=== PATIENT | female | born 1990 | race Caucasian/White ===

== ENCOUNTER → 2017-06-10 | Outpatient (CLI) | payer BC | LOC: LABPAT 13:04 | PROVIDERS: ATTEND Obstetrics & Gynecology | DX: Z01.812 Encounter for preprocedural laboratory examination (principal); O03.9 Complete or unspecified spontaneous abortion without complication | CPT/HCPCS: 36415; 85025; 86850; 86900; 86901 ==

== ENCOUNTER 2017-06-11 10:53 | Day surgery (SDC) | payer BC ==
[2017-06-10 14:10] LABS: Basophils % (A) 0 %; CH 29.6; CHCM 33.7; Eosinophils % (A) 0 %; HCT 39.2 % (34.0-46.0); HDW 2.82; HGB 12.9 gm/dL (11.4-16.0); Luc # (Auto) 0.15; Luc % (Auto) 1; Lymphocytes # (A) 1.8 k/uL (1.0-4.8); Lymphocytes % (A) 17 %; MCH 29.2 pg (25.0-35.0); MCV 88.4 fL (80.0-100.0); Mean Platelet Volume 7.5; Monocytes # (A) 0.5 k/uL (0-1.0); Monocytes % (A) 4 %; Neutrophils # (A) 8.4 k/uL (1.3-7.7); Neutrophils % (A) 77 %; RBC 4.43 m/uL (3.80-5.40); RDW 12.6 % (11.5-15.5); WBC 10.8 k/uL (3.8-10.6)
[2017-06-10 14:57] VITALS: BMI 37.6
[~2017-06-11 10:53] MED LIST: DEXAMETHASONE SOD PHOSPHATE 10 MG/ML 1 ML VIAL IV ONE; HYDROmorphone 1 MG/ML 1 ML SYRINGE IVP PRN; LACTATED RINGERS 1,000 ML IV SCH; LIDOCAINE 1% 20 ML VIAL (10MG/ML) FOR IV START INTRADERMA PRN; MIDAZOLAM 2 MG/2 ML VIAL IV PRN; ONDANSETRON 4 MG/2 ML VIAL IVP ONE; Pre Op ABX Message 1 EACH MISC MISCELLANE ONE; SCOPOLAMINE 1.5MG/72HR PATCH TRANSDERM ONE
[2017-06-11] MEDS ORDERED: PROPOFOL 10 MG/ML 20 ML VIAL IV ONE (12:20)
[2017-06-11] MEDS ORDERED: KETOROLAC 30 MG/ML 1 ML VIAL ONE (12:20)
[2017-06-11] MEDS ORDERED: LIDOCAINE 1% INJ 10MG/ML (20 ML MDV) ONE (12:20)
[2017-06-11] MEDS ORDERED: fentaNYL (PF) 50 MCG/ML 2 ML AMP ONE (12:20)
[2017-06-11] MEDS ORDERED: MIDAZOLAM 2 MG/2 ML VIAL ONE (12:20)
[2017-06-11] MEDS ORDERED: SILVER NITRATE APPLICATOR 1 EACH STICK..EA. TOPICAL ONE (12:40)
--- NOTE | 2017-06-11 12:47 | P.OP ---
Date of Procedure: 06/11/17 Preoperative Diagnosis: Missed , first trimester, Rh+ Postoperative Diagnosis: Same Procedure(s) Performed: Suction D&C Anesthesia: TAMMY Surgeon: Amparo Parker Estimated Blood Loss (ml): 75 IV fluids (ml): 150 Urine output (ml): 75 Pathology: other (Intrauterine contents, products of conception) Condition: stable Disposition: PACU Description of Procedure: Patient is brought to the operating suite where a general anesthetic is administered without difficulty. She's placed in the dorsal lithotomy position. The appropriate timeout is performed to assure proper patient and procedural identification. Examination under anesthesia reveals a retroverted uterus, 8-10 weeks size, smooth and mobile, negative adnexa bilaterally. Bladder is drained for approximate 75 mL of clear yellow urine. The perineal body is prepped and draped in usual sterile fashion. The cervix was gently and systematically dilated with Hanks dilators. The anterior lip of the cervix is grasped gently with a double-tooth tenaculum. Uterus sounds to a depth of 10 cm in the retroverted position. A #8 curved curette is used, this was placed to the dome of the fundus, and under appropriate suction pressures the curettage is performed. When this is completed, a sharp curette is used to assure that there are no retained products of conception. There are no intrauterine defects, septa, or anomalies appreciated. Fundus is firm, bleeding is scant upon completion of procedure. All sponge needle and enhancement counts are correct. Patient is brought back to recovery room in stable condition with a blood pressure of 110/80, pulse 72, Toradol is given prior to leaving the operative suite. She will follow-up with the office immediately in 2 weeks.
[2017-06-11 12:51] VITALS: TEMP 97.4
[2017-06-11 14:15] VITALS: RESP 16
[2017-06-11 14:32] VITALS: BP 125/83; PULSE 79
== END 2017-06-11 14:40 | disposition home or self-care (01) ==
LOC: OR 10:53
PROVIDERS: ATTEND Obstetrics & Gynecology
DX: O02.1 Missed abortion (principal); Z3A.08 8 weeks gestation of pregnancy
CPT/HCPCS: 86900; 86901; 88305; 85025; 86850; 36415; 59820; J2250; J1100; J2405; J2001; J3010; J1885; J2704

== ENCOUNTER 2018-06-08 15:06 | Outpatient (CLI) | payer BC ==
[2018-06-08 16:20] VITALS: BP 117/70; PULSE 90; RESP 16; TEMP 97.1
--- NOTE | 2018-06-14 08:59 | P.MSEPDOC ---
Presenting Problems - Arrival Data Date of Arrival on Unit: 06/08/18 Time of Arrival on Unit: 15:18 Mode of Transport: Ambulatory - Complaint OB-Reason for Admission/Chief Complaint: Rule Out PROM Comment: pt arrived c/o dampness in underwear Medical History - Information : 3 Para: 1 Term: 1 : 0 Abortions: Spontaneous or Elective: 1 Number of Living Children: 1 - Gestational Age Gestational Age by CAMI (wks/days): 36 Weeks and 4 Days Review of Systems - Review of Systems Constitutional: No problems Breast: No problems ENT: No problems Cardiovascular: No problems Respiratory: No problems Gastrointestinal: No problems Genitourinary: No problems Musculoskeletal: No problems Neurological: No problems Skin: No problems Vital Signs - Temperature Temperature: 97.1 F Temperature Source: Oral - Pulse Right Brachial Pulse Rate: 90 Pulse Assessment Method: Automatic Cuff - Respirations Respiratory Rate: 16 Oxygen Delivery Method: Room Air - Blood Pressure Right Arm Blood Pressure: 117/70 Blood Pressure Mean: 85 Blood Pressure Source: Automatic Cuff Medical Screen Scoring (Pre) - Cervical Exam Dilation: 0 cm = 0 Effacement: More than 50% = 2 Membranes: Intact - Uterine Contractions Frequency: N/A Duration: N/A Intensity: N/A - Maternal Vital Signs Maternal Temperature: N/A Signs of Preeclampsia: N/A Maternal Respirations: N/A - Pain Assessment Pain Scale Used: Numeric (1 - 10) Pain Intensity: 0 Pain Management Goal: 0 Pain Behavior: Vocalization - Maternal Trauma Maternal Trauma: N/A - Assessment Baseline FHR: 130 Heart Rate - NICHD Category: Category I (Normal) = 0 NST: Reactive Position: N/A - Total Score Total Score (Pre): 2 - Level of Risk Level of Risk: Low (0-5) Physician Notification (Post) - Physician Notified Physician Notified Date: 06/08/18 Physician Notified Time: 16:00 Spoke With: dr jean baptiste New Order Received: Yes - Notification Comment Comment: amnisure negative cervix soft but closed may discharge to home Disposition - Disposition OB Disposition: Discharge to home Discharge Date: 06/08/18 Discharge Time: 16:00 I agree with the RN Medical Screening Exam: Yes Risk & Benefit of care provided described in d/c instruction: Yes Diagnosis: FALSE LABOR BEFORE 37 COMPLETED WEEKS OF GEST, THIRD TRI
== END 2018-06-08 16:00 | disposition home or self-care (01) ==
LOC: FBPOP 15:06
PROVIDERS: ATTEND Obstetrics & Gynecology
DX: O47.03 False labor before 37 completed weeks of gestation, third trimester (principal); Z3A.36 36 weeks gestation of pregnancy
CPT/HCPCS: 59025; 84112; 99213

== ENCOUNTER 2018-07-02 15:33 | Inpatient (IN) | payer BC ==
[2018-07-06] MEDS ORDERED: LIDOCAINE 0.5% (PF) 5 MG/ML (50 ML SDV) SQ PRN (06:22)
[2018-07-06] MEDS ORDERED: OXYTOCIN 10 UNIT/ML 1 ML VIAL IM PRN (06:22)
[2018-07-06] MEDS ORDERED: CARBOPROST TROMETHAMINE 250 MCG/ML 1 ML AMP IM PRN (06:22)
[2018-07-06] MEDS ORDERED: TERBUTALINE 1 MG/ML VIAL SQ PRN (06:22)
[2018-07-06] MEDS: LACTATED RINGERS 1,000 ML IV SCH ×3 (06:22→23:28)
[2018-07-06] MEDS ORDERED: METHYLERGONOVINE 0.2 MG/ML 1 ML AMP IM PRN (06:22)
[2018-07-06] MEDS ORDERED: OXYTOCIN 20 UNITS/1000 ML NS 1,000 ML IV SCH (06:30)
[2018-07-06 06:40] VITALS: BMI 38.4
[2018-07-06 06:50] LABS: Basophils % (A) 0 %; Eosinophils # (A) 0.1 k/uL (0-0.7); Eosinophils % (A) 1 %; HGB 11.6 gm/dL (11.4-16.0); Lymphocytes # (A) 1.7 k/uL (1.0-4.8); Lymphocytes % (A) 21 %; MCH 28.6 pg (25.0-35.0); MCHC 34.1 g/dL (31.0-37.0); Mean Platelet Volume 8.8; Monocytes # (A) 0.4 k/uL (0-1.0); Monocytes % (A) 5 %; Neutrophils # (A) 5.8 k/uL (1.3-7.7); Neutrophils % (A) 72 %; Platelet Count 175 k/uL (150-450); RBC 4.05 m/uL (3.80-5.40); RDW 13.7 % (11.5-15.5); WBC 8.2 k/uL (3.8-10.6)
--- NOTE | 2018-07-06 07:26 | P.HPOB ---
History of Present Illness H&P Date: 07/06/18 This is a 27-year-old white female 3 para 1011 EDC 07/02/2018 at 40-4/7 weeks' gestation. Patient presents today for induction for postdates with favorable multiparous cervix. She denies uterine contractions or vaginal bleeding. She denies fluid leakage. Fetus is been active throughout the . history is significant for gestational diabetes, diet controlled. Group B strep cultures negative. Blood type O+. Rubella status immune. VDRL testing, urine culture, hepatitis B surface antigen, HIV testing, gonorrhea and chlamydia cultures all negative. Past surgical history suction D&C for missed AB 2010, wisdom teeth extracted 2007. Current medications Pepcid 20 mg when necessary, vitamins daily. ALLERGIES none known. Family history significant for diabetes, Down syndrome, hypertension, stroke, colon cancer. Social history patient is , she has never been a smoker, she denies alcohol or drug use. On exam this is a pleasant white female who is 5 foot 3 inches, 210 pounds, blood pressure 111/65 on admission, patient is afebrile. The general physical exam is within normal limits. The cervix is currently 3-4 cm dilated, 70% effaced, soft, vertex, intact, -2 station. Artificial amniorrhexis reveals clear fluid. heart tones are in the 140s with frequent accelerations consistent with reactive NST. Impression: 40-4/7 weeks intrauterine , gestational diabetes, all signs reassuring, here for elective induction of labor with favorable multiparous cervix. Plan: Close maternal and surveillance. Oxytocin per hospital protocol. Analgesic options reviewed with the patient. Anticipate normal spontaneous vaginal delivery. Review of Systems Negative except as in HPI. Constitutional: Reports as per HPI Past Medical History Past Medical History: GERD/Reflux Additional Past Medical History / Comment(s): miscarriage, Gestational diabetes 05/2018 History of Any Multi-Drug Resistant Organisms: None Reported Additional Past Surgical History / Comment(s): wisdom teeth 2007, D & C Past Anesthesia/Blood Transfusion Reactions: No Reported Reaction Past Psychological History: No Psychological Hx Reported Smoking Status: Never smoker Past Alcohol Use History: None Reported Past Drug Use History: None Reported - Past Family History Father Family Medical History: Hypertension Medications and Allergies Home Medications Medication Instructions Recorded Confirmed Type Acetaminophen Tab [Tylenol Tab] 650 mg PO Q4H PRN 06/10/17 07/06/18 History Jvx-Gaxm-Dacjz Acid 1 cap PO DAILY 06/10/17 07/06/18 History [-U Capsule (formulary)] Famotidine [Pepcid] 1 tab PO DAILY 05/04/18 07/06/18 History Allergies Allergy/AdvReac Type Severity Reaction Status Date / Time No Known Allergies Allergy Verified 07/06/18 06:17 Exam Vital Signs Temp Pulse Resp BP Pulse Ox 07/06/18 06:24 97.4 F L 81 18 111/65 99 Intake and Output 07/05/18 07/06/18 07/06/18 22:59 06:59 14:59 Other: Weight 95.254 kg Results Result Diagrams: 07/06/18 06:25 Assessment and Plan Assessment: 40-4/7 weeks intrauterine , gestational diabetes, here for induction of labor with favorable multiparous cervix. Plan: Continue close maternal and surveillance. Oxytocin per hospital protocol. Analgesic options reviewed with the patient. Anticipate normal spontaneous vaginal delivery. Time with Patient: Less than 30
[2018-07-06 07:33] LABS: Glucose,Whole Blood 88 mg/dL (75-99)
[2018-07-06] MEDS ORDERED: WITCH HAZEL 1 EACH MED..PAD TOPICAL PRN (14:09)
[2018-07-06] MEDS ORDERED: diphenhydrAMINE 50 MG/ML 1 ML VIAL IVP PRN ×2 (14:09)
[2018-07-06] MEDS ORDERED: ZOLPIDEM 5 MG TAB PO PRN (14:09)
[2018-07-06] MEDS ORDERED: SIMETHICONE 80 MG CHEWABLE PO PRN (14:09)
[2018-07-06] MEDS ORDERED: BENZOCAINE/MENTHOL SPRAY 1 GM/SPRAY AEROSOL TOPICAL PRN (14:09)
[2018-07-06] MEDS ORDERED: diphenhydrAMINE 25 MG CAP PO PRN (14:09)
[2018-07-06] MEDS ORDERED: diphenhydrAMINE 50 MG CAP PO PRN (14:09)
[2018-07-06] MEDS ORDERED: LANOLIN CREAM 5 GM TUBE TOPICAL PRN (14:09)
[2018-07-06] MEDS ORDERED: HYDROCORTISONE 2.5% RECTAL CREAM 30 GM TUBE RECTAL PRN (14:09)
[2018-07-06] MEDS ORDERED: ACETAMINOPHEN TAB 325 MG TAB PO PRN (14:09)
--- NOTE | 2018-07-06 14:09 | P.PROBDLV ---
Vaginal Delivery Note - . Vaginal Delivery Note: This is a 27-year-old white female 3 para 1011 EDC 07/02/2018 at 40-4/7 weeks' gestation. Patient presented this morning for induction for postdates with favorable multiparous cervix. Rupee strep cultures negative. Blood type O positive. Rubella status immune. Please see my dictated history and physical for details. Artificial amniorrhexis revealed clear fluid. Analgesia was offered but declined. Oxytocin was started and titrated per hospital protocol. Patient became completely dilated at 1340 hrs. and began the second stage of labor at that time. Perineal body was prepped and draped in usual sterile fashion. With excellent maternal expulsive efforts the head delivered occiput anterior and restituted accordingly. There was no nuchal cord. The left or anterior shoulder was gently and easily delivered from underneath the pubic symphysis at which time the oropharynx, nasopharynx, and external nares were all bulb suctioned on the perineal body. Patient was officially delivered of a liveborn male infant at 1353 hrs. Umbilical cord was doubly clamped and ligated, he was handed to waiting nurses for evaluation where scores of 9 and 9 at one and 5 minutes respectively were given. The placenta delivered spontaneously, it was inspected and noted to be intact with trivascular cord. At this time the perineal body was redraped. Inspection of the cervix, vagina, perineum, periurethral, and perirectal areas revealed no lacerations and no defects. Estimated blood loss 300 mL's. Fundus is firm and in the midline, symmetric and 18 week size upon completion of delivery. All sponge needle and enhancement counts are correct. Infant weighs 7 lbs. 11 oz. or 3480 g. They are requesting circumcision further infant son.
[2018-07-06 14:21] VITALS: RESP 16
[2018-07-06] MEDS: IBUPROFEN 600 MG TAB PO PRN ×2 (14:42→21:36)
[2018-07-06] MEDS: SENNOSIDES-DOCUSATE SODIUM 1 EACH TAB PO SCH (23:28)
[2018-07-07] MEDS: IBUPROFEN 600 MG TAB PO PRN ×2 (05:20→14:02)
[2018-07-07 07:16] LABS: Basophils % (A) 0 %; Eosinophils # (A) 0.1 k/uL (0-0.7); Eosinophils % (A) 1 %; HCT 30.7 % (34.0-46.0); HGB 10.3 gm/dL (11.4-16.0); Lymphocytes # (A) 1.5 k/uL (1.0-4.8); Lymphocytes % (A) 15 %; MCH 28.5 pg (25.0-35.0); MCHC 33.5 g/dL (31.0-37.0); MCV 85.2 fL (80.0-100.0); Mean Platelet Volume 8.6; Monocytes # (A) 0.4 k/uL (0-1.0); Monocytes % (A) 4 %; Neutrophils # (A) 8.3 k/uL (1.3-7.7); Neutrophils % (A) 80 %; Platelet Count 172 k/uL (150-450); RBC 3.61 m/uL (3.80-5.40); WBC 10.4 k/uL (3.8-10.6)
--- NOTE | 2018-07-07 07:49 | P.DS ---
Providers Date of admission: 07/06/18 06:08 Expected date of discharge: 07/07/18 Attending physician: Amparo Parker Primary care physician: Stated None Hospital Course: was essentially unremarkable, group B strep cultures negative, rubella status immune, blood type O positive. Please see my dictated history and physical for details. Artificial amniorrhexis revealed clear fluid. Patient was offered but declined the option for epidural. She went on to deliver a liveborn male infant with scores of 9 and 9 at one and 5 minutes respectively. Infant weighed 7 lbs. 11 oz. or 3480 g. There were no perineal lacerations and an estimated blood loss of 300 mL's. Please see dictated delivery note for details. This morning the circumcision has been performed and was unremarkable. The patient is doing well. She is voiding, ambulating, and passing flatus without difficulty. Vital signs are stable and she is afebrile. Breast-feeding is going well. There is minimal lochia rubra. Fundus is firm and in the midline, symmetric and 18 week size. Extremities are negative for edema. Patient is judged to be in excellent condition for discharge home. She will follow-up with me in the office in 6 weeks. I have reminded her no intercourse, tampons or douching. We've discussed briefly the options for contraception and we will discuss this further in the office. She will use over -the-counter Advil or Aleve as needed for pain. She will call me with any fevers shakes or chills, foul smelling or copious lochia, with any pain not alleviated by [id number] products, or any concerns. Russell will follow- up with drafter structural as recommended. Plan - Discharge Summary Discharge Rx Participant: No New Discharge Prescriptions: No Action Glt-Lcem-Ixwsc Acid [-U Capsule (formulary)] 1 cap PO DAILY Acetaminophen Tab [Tylenol Tab] 650 mg PO Q4H PRN PRN Reason: Pain Famotidine [Pepcid] 1 tab PO DAILY Discharge Medication List Acetaminophen Tab [Tylenol Tab] 650 mg PO Q4H PRN 06/10/17 [History] Onl-Jtlx-Qtoka Acid [-U Capsule (formulary)] 1 cap PO DAILY 03/19 [History] Famotidine [Pepcid] 1 tab PO DAILY 05/04/18 [History] Follow up Appointment(s)/Referral(s): Amparo Parker MD [STAFF PHYSICIAN] - 6 Weeks Discharge Disposition: HOME SELF-CARE
[2018-07-07 09:24] VITALS: BP 110/60; PULSE 86; TEMP 98.3
[2018-07-07] MEDS: SENNOSIDES-DOCUSATE SODIUM 1 EACH TAB PO SCH (14:03)
== END 2018-07-07 15:30 | disposition home or self-care (01) | DRG 807 ==
LOC: 4FBP 07-06 06:08
PROVIDERS: ADMIT Obstetrics & Gynecology; ATTEND Obstetrics & Gynecology
PROC: 10E0XZZ Delivery of Products of Conception, External Approach (ICD-10-PCS; principal; 2018-07-06)
PROC: 3E033VJ Introduction of Other Hormone into Peripheral Vein, Percutaneous Approach (ICD-10-PCS; 2018-07-06)
PROC: 10907ZC Drainage of Amniotic Fluid, Therapeutic from Products of Conception, Via Natural or Artificial Opening (ICD-10-PCS; 2018-07-06)
DX: O48.0 Post-term pregnancy (principal); Z37.0 Single live birth; O24.420 Gestational diabetes mellitus in childbirth, diet controlled; O99.62 Diseases of the digestive system complicating childbirth; K21.9 Gastro-esophageal reflux disease without esophagitis; Z3A.40 40 weeks gestation of pregnancy; Z79.899 Other long term (current) drug therapy; Z83.3 Family history of diabetes mellitus; Z82.79 Family history of other congenital malformations, deformations and chromosomal abnormalities; Z82.49 Family history of ischemic heart disease and other diseases of the circulatory system; Z80.0 Family history of malignant neoplasm of digestive organs; Z82.3 Family history of stroke
CPT/HCPCS: 85025; 86850; 86900; 86901

== ENCOUNTER → 2019-12-05 | Outpatient (CLI) | payer BC ==
--- NOTE | 2019-12-05 16:20 | US ---
EXAMINATION TYPE: US venous doppler duplex LE RT DATE OF EXAM: 12/05/2019 4:01 PM COMPARISON: NONE CLINICAL HISTORY: M79.661 Pain in right lower limb. Patient states she had a albert horse in her rig ht calf 2 days ago and pain/cramp is still there a little bit, patient is 39 weeks . SIDE PERFORMED: Right TECHNIQUE: The lower extremity deep venous system is examined utilizing real time linear array sonog brook with graded compression, doppler sonography and color-flow sonography. VESSELS IMAGED: External Iliac Vein (EIV) Common Femoral Vein Deep Femoral Vein Greater Saphenous Vein * Femoral Vein Popliteal Vein Small Saphenous Vein * Proximal Calf Veins (* superficial vessels) Right Leg: Appears negative for DVT IMPRESSION: No evidence for DVT at this time.
== END | disposition home or self-care (01) ==
LOC: RADUSMAIN 15:28
PROVIDERS: ATTEND Obstetrics & Gynecology
DX: M79.661 Pain in right lower leg (principal); Z3A.39 39 weeks gestation of pregnancy

== ENCOUNTER 2019-12-08 11:19 | Inpatient (IN) | payer BC ==
[2019-12-14] MEDS ORDERED: LIDOCAINE 0.5% (PF) 5 MG/ML (50 ML SDV) SQ PRN (06:20)
[2019-12-14] MEDS ORDERED: TERBUTALINE 1 MG/ML VIAL SQ PRN (06:20)
[2019-12-14] MEDS ORDERED: METHYLERGONOVINE 0.2 MG/ML 1 ML AMP IM PRN (06:20)
[2019-12-14] MEDS ORDERED: CARBOPROST TROMETHAMINE 250 MCG/ML 1 ML AMP IM PRN (06:20)
[2019-12-14] MEDS ORDERED: OXYTOCIN 10 UNIT/ML 1 ML VIAL IM PRN (06:20)
[2019-12-14] MEDS ORDERED: OXYTOCIN 30 UNITS/500 ML NS 30 UNIT in SALINE 1 500ML.BAG IV SCH (06:30)
[2019-12-14] MEDS: LACTATED RINGERS 1,000 ML IV SCH ×2 (06:32→19:49)
[2019-12-14 06:45] LABS: Basophils % (A) 0 %; Eosinophils # (A) 0.1 k/uL (0-0.7); Eosinophils % (A) 1 %; HCT 32.1 % (34.0-46.0); HGB 10.6 gm/dL (11.4-16.0); Lymphocytes # (A) 1.3 k/uL (1.0-4.8); Lymphocytes % (A) 20 %; MCH 28.1 pg (25.0-35.0); MCHC 33.1 g/dL (31.0-37.0); MCV 84.7 fL (80.0-100.0); Mean Platelet Volume 8.8; Monocytes # (A) 0.4 k/uL (0-1.0); Monocytes % (A) 5 %; Neutrophils # (A) 4.9 k/uL (1.3-7.7); Neutrophils % (A) 71 %; Platelet Count 173 k/uL (150-450); RBC 3.79 m/uL (3.80-5.40); RDW 14.2 % (11.5-15.5); WBC 6.8 k/uL (3.8-10.6)
--- NOTE | 2019-12-14 07:39 | P.HPOB ---
History of Present Illness H&P Date: 12/14/19 Chief Complaint: Here for elective induction of labor with favorable multiparous cervix This is a 29-year-old white female 4 para 2012 EDC 12/08/2019 at 40-6/7 weeks' gestation. Patient presents today with favorable multiparous cervix, postdates, for induction of labor. Fetus is been active throughout the . She denies vaginal bleeding or fluid leakage. Past medical history is significant for anxiety and depression. Past surgical history suction D&C for missed AB 2016, wisdom teeth extracted 2007. Current medications Pepcid 40 mg orally as needed, vitamins daily, extra strength Tylenol as needed. ALLERGIES none known. Family history is significant for hypertension, diabetes, stroke, colon cancer, Down syndrome and febrile seizures. Obstetric history significant for normal spontaneous vaginal deliveries 2, unremarkable. Social history patient has never been a tobacco smoker, she denies alcohol or drug use. 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 history significant for blood type O positive, rubella status immune. VDRL testing, urine culture, hepatitis B surface antigen, HIV testing, gonorrhea and chlamydia cultures, group B strep cultures all negative. One hour Glucola elevated, 3 hour GTT within normal limits. On exam this is a pleasant white female who is 5 foot 2 inches, 205 pounds, blood pressure 130/64 with pulse of 89 on admission. General physical exam is within normal limits. Extremities reveal no edema. Chest is clear in all landeros. Cervix is 3-4 cm dilated, 60-70% effaced, -2 station, vertex presentation. Artificial amniorrhexis reveals clear fluid. heart rate is in the 140s with frequent accelerations consistent with reactive NST. Uterine contractions are occurring sporadically, and are mild. Impression: 40-6/7 weeks intrauterine , favorable multiparous cervix, here for induction of labor. All signs reassuring. Plan: Oxytocin augmentation per hospital protocol. Analgesic options have been reviewed with the patient. Close maternal and surveillance. Anticipate normal spontaneous vaginal delivery. Review of Systems Constitutional: Reports as per HPI Past Medical History Past Medical History: GERD/Reflux Additional Past Medical History / Comment(s): miscarriage, Gestational diabetes 05/2018 History of Any Multi-Drug Resistant Organisms: None Reported Additional Past Surgical History / Comment(s): wisdom teeth 2008, D & C Past Anesthesia/Blood Transfusion Reactions: No Reported Reaction Past Psychological History: No Psychological Hx Reported, Anxiety, Depression Smoking Status: Never smoker Past Alcohol Use History: None Reported Past Drug Use History: None Reported - Past Family History Father Family Medical History: Hypertension Medications and Allergies Home Medications Medication Instructions Recorded Confirmed Type Hfw-Pxpr-Azcel Acid 1 cap PO DAILY 06/10/17 12/14/19 History [-U Capsule (formulary)] Famotidine [Pepcid] 1 tab PO DAILY 05/04/18 12/14/19 History Allergies Allergy/AdvReac Type Severity Reaction Status Date / Time No Known Allergies Allergy Verified 12/14/19 06:12 Exam Vital Signs Temp Pulse Resp BP Pulse Ox 12/14/19 06:11 97.7 F 89 16 130/64 99 Intake and Output 12/13/19 12/14/19 12/14/19 22:59 06:59 14:59 Other: Weight 92.986 kg See dictation under HPI please Results Result Diagrams: 12/14/19 06:30 Abnormal Lab Results - Last 24 Hours (Table) 12/14/19 Range/Units 06:30 RBC 3.79 L (3.80-5.40) m/uL Hgb 10.6 L (11.4-16.0) gm/dL Hct 32.1 L (34.0-46.0) % Assessment and Plan Assessment: 40-6/7 weeks intrauterine , favorable multiparous cervix, here for elective induction of labor. All signs reassuring. Plan: Oxytocin titrated per hospital protocol. Close maternal and surveillance. Analgesic options reviewed with the patient. Anticipate normal spontaneous vaginal delivery. Time with Patient: Less than 30
[2019-12-14] MEDS ORDERED: LANOLIN CREAM 5 GM TUBE TOPICAL PRN (13:22)
[2019-12-14] MEDS ORDERED: diphenhydrAMINE 50 MG CAP PO PRN (13:22)
[2019-12-14] MEDS ORDERED: BENZOCAINE/MENTHOL SPRAY 1 GM/SPRAY AEROSOL TOPICAL PRN (13:22)
[2019-12-14] MEDS ORDERED: SIMETHICONE 80 MG CHEWABLE PO PRN (13:22)
[2019-12-14] MEDS ORDERED: HYDROCORTISONE 2.5% RECTAL CREAM 30 GM TUBE RECTAL PRN (13:22)
[2019-12-14] MEDS ORDERED: WITCH HAZEL 1 EACH MED..PAD TOPICAL PRN (13:22)
[2019-12-14] MEDS ORDERED: diphenhydrAMINE 50 MG/ML 1 ML VIAL IVP PRN ×2 (13:22)
[2019-12-14] MEDS ORDERED: diphenhydrAMINE 25 MG CAP PO PRN (13:22)
[2019-12-14] MEDS ORDERED: ZOLPIDEM 5 MG TAB PO PRN (13:22)
[2019-12-14] MEDS ORDERED: ACETAMINOPHEN TAB 325 MG TAB PO PRN (13:22)
--- NOTE | 2019-12-14 13:22 | P.PROBDLV ---
Vaginal Delivery Note - . Vaginal Delivery Note: This is a 29-year-old white female 4 para 2012 EDC 12/08/2019 at 40-6/7 weeks' gestation. Patient presented for induction for postdates and favorable multiparous cervix. She is remarkable for negative group B strep cultures, blood type O positive, rubella status immune. Please see dictated history and physical for details. Artificial rupture membranes revealed clear fluid. Oxytocin was started and titrated per hospital protocol. Analgesic options were discussed, but patient declined. She progressed well through the first stage of labor and became completely dilated at 1253 hours. Second stage of labor then commenced. It'll heart tones were reassuring throughout the first and second stages. Perineal body was prepped and draped in usual sterile fashion. With excellent maternal expulsive efforts the head delivered occiput anterior and restituted accordingly. There was a nuchal cord 1 that was reduced on the perineal body. The left or anterior shoulder was delivered from underneath the pubic symphysis at which time the oropharynx, nasopharynx, and external nares were all bulb suctioned. Patient was officially delivered a liveborn female at 1304 hrs. Umbilical cord was doubly clamped and ligated, she was handed to waiting nurses for evaluation where scores of 7 and 9 at one and 5 minutes respectively were given. Placenta delivered spontaneously, it was inspected and noted be intact with trivascular cord at 1306 hrs. At this time the uterus was massaged. Careful inspection of the cervix, vagina, perineum, periurethral, and perirectal areas revealed no lacerations and no defects. Total estimated blood loss 250 mL's. All sponge needle and enhancement counts are correct at the end of the procedure. Patient and her family are allowed to begin the bonding experience in the LDR.
[2019-12-14] MEDS ORDERED: OXYTOCIN 20 UNITS/1000 ML NS 1,000 ML IV SCH (13:30)
[2019-12-14] MEDS: IBUPROFEN 600 MG TAB PO PRN ×2 (13:57→19:48)
[2019-12-14] MEDS: SENNOSIDES-DOCUSATE SODIUM 1 EACH TAB PO SCH (19:49)
[2019-12-15 07:23] LABS: Basophils % (A) 0 %; Eosinophils # (A) 0.1 k/uL (0-0.7); Eosinophils % (A) 1 %; HCT 31.6 % (34.0-46.0); HGB 10.2 gm/dL (11.4-16.0); Lymphocytes # (A) 1.4 k/uL (1.0-4.8); Lymphocytes % (A) 16 %; MCH 27.7 pg (25.0-35.0); MCHC 32.3 g/dL (31.0-37.0); MCV 85.6 fL (80.0-100.0); Mean Platelet Volume 9.1; Monocytes # (A) 0.4 k/uL (0-1.0); Monocytes % (A) 4 %; Neutrophils # (A) 6.6 k/uL (1.3-7.7); Neutrophils % (A) 77 %; Platelet Count 181 k/uL (150-450); RBC 3.69 m/uL (3.80-5.40); RDW 14.4 % (11.5-15.5); WBC 8.5 k/uL (3.8-10.6)
[2019-12-15] MEDS: IBUPROFEN 600 MG TAB PO PRN (07:54)
--- NOTE | 2019-12-15 08:04 | P.DS ---
Providers Date of admission: 12/14/19 06:02 Expected date of discharge: 12/15/19 Attending physician: Amparo Parker Primary care physician: Stated None Hospital Course: This is a 29-year-old white female 4 para 2012 EDC 12/08/2019 at 40-6/7 weeks' gestation. Patient presented for induction for postdates with favorable multiparous cervix. Fetus is been active throughout the . remarkable for rubella status immune, blood type O positive, group strep cultures negative. Please see dictated history and physical for details. Oxytocin was started per hospital protocol. Artificial amniorrhexis revealed clear fluid. Epidural was offered but declined per the patient. She went on to deliver vaginally a liveborn female infant with scores of 7 and 9 at one and 5 minutes respectively. There was a nuchal cord 1. No lacerations or defects were identified. Patient's baby weighed 9 lbs. 4 oz. or 4190 g. Please see dictated delivery note for details. This morning the patient is doing well. She is voiding ambulating and passing flatus without difficulty. Vital signs are stable and she is afebrile. Fundus is firm and in the midline, symmetric and 18 week size. Breasts are not engorged. Prescription for breast pump is given. Patient is judged to be in very good condition for discharge home. She will follow-up with me in the office in 6 weeks. I have reminded her no intercourse, tampons or douching. She will use [id number] Advil or Aleve, or Motrin as needed for pain. She will call with any fevers shakes or chills, foul smelling or copious lochia, with the passage of large blood clots, with any pain not alleviated by [id number]-wen-nigleix products, or with any concerns. We have discussed options for contraception and we will review this further in the office. Booker will follow-up with doughnut icer as per recommendations. Patient Condition at Discharge: Good Plan - Discharge Summary Discharge Rx Participant: No New Discharge Prescriptions: No Action Sle-Jket-Luhdo Acid [-U Capsule (formulary)] 1 cap PO DAILY Famotidine [Pepcid] 1 tab PO DAILY Discharge Medication List Mwm-Eobk-Jxuzk Acid [-U Capsule (formulary)] 1 cap PO DAILY 06/10/17 [History] Famotidine [Pepcid] 1 tab PO DAILY 05/04/18 [History] Follow up Appointment(s)/Referral(s): Amparo Parker MD [STAFF PHYSICIAN] - 6 Weeks
[2019-12-15] MEDS: SENNOSIDES-DOCUSATE SODIUM 1 EACH TAB PO SCH (08:31)
[2019-12-15 08:35] VITALS: BP 132/80; PULSE 79; RESP 16; TEMP 98.5
== END 2019-12-15 14:00 | disposition home or self-care (01) | DRG 807 ==
LOC: 4FBP 12-14 06:02
PROVIDERS: ADMIT Obstetrics & Gynecology; ATTEND Obstetrics & Gynecology
PROC: 10907ZC Drainage of Amniotic Fluid, Therapeutic from Products of Conception, Via Natural or Artificial Opening (ICD-10-PCS; principal; 2019-12-14)
PROC: 10E0XZZ Delivery of Products of Conception, External Approach (ICD-10-PCS; principal; 2019-12-14)
PROC: 3E033VJ Introduction of Other Hormone into Peripheral Vein, Percutaneous Approach (ICD-10-PCS; principal; 2019-12-14)
DX: O48.0 Post-term pregnancy (principal); Z37.0 Single live birth; O69.81X0 Labor and delivery complicated by cord around neck, without compression, not applicable or unspecified; K21.9 Gastro-esophageal reflux disease without esophagitis; O99.62 Diseases of the digestive system complicating childbirth; Z3A.40 40 weeks gestation of pregnancy; Z86.32 Personal history of gestational diabetes; Z86.59 Personal history of other mental and behavioral disorders; Z80.0 Family history of malignant neoplasm of digestive organs; Z82.3 Family history of stroke; Z82.49 Family history of ischemic heart disease and other diseases of the circulatory system; Z82.79 Family history of other congenital malformations, deformations and chromosomal abnormalities; Z83.3 Family history of diabetes mellitus
CPT/HCPCS: 85025; 86850; 86900; 86901

== ENCOUNTER → 2024-01-04 | Outpatient (CLI) | payer BC ==
[2024-01-04 15:58] LABS: HCT 39.2 % (37.2-46.3); HGB 13.5 g/dL (12.0-15.0); MCH 28.8 pg (27.0-32.0); MCHC 34.4 g/dL (32.0-37.0); MCV 83.8 FL (80.0-97.0); Mean Platelet Volume 10.7 FL (9.5-12.2); NRBC Per 100 WBC 0 X 10*3/uL (0.00-0.01); Platelet Count 250 X 10*3/uL (140-440); RBC 4.68 X 10*6/uL (4.10-5.20); RDW 12.7 % (11.5-14.5); WBC 5.93 X 10*3/uL (4.50-10.00)
[2024-01-04 15:59] LABS: Basophils # (A) 0.03 X 10*3/uL (0.00-0.10); Basophils % (A) 0.5 %; Eosinophils # (A) 0.07 X 10*3/uL (0.04-0.35); Eosinophils % (A) 1.2 %; Lymphocytes # (A) 1.77 X 10*3/uL (0.90-5.00); Lymphocytes % (A) 29.8 %; Monocytes # (A) 0.42 X 10*3/uL (0.20-1.00); Monocytes % (A) 7.1 %; Neutrophils # (A) 3.63 X 10*3/uL (1.80-7.70); Neutrophils % (A) 61.2 %
[2024-01-04 19:29] LABS: Blood Urea Nitrogen 10.4 mg/dL (9.0-27.0); Carbon Dioxide 22.7 mmol/L (21.6-31.8); Chloride 105 mmol/L (96-109); Glucose 105 mg/dL (70-110); Sodium 142 mmol/L (135-145)
== END | disposition home or self-care (01) ==
LOC: LABPAT 13:17
PROVIDERS: ATTEND Obstetrics & Gynecology Obstetrics
DX: Z01.812 Encounter for preprocedural laboratory examination (principal); N92.0 Excessive and frequent menstruation with regular cycle; N94.6 Dysmenorrhea, unspecified; N80.00 Endometriosis of the uterus, unspecified
CPT/HCPCS: 80051; 82565; 82947; 84520; 85025; 86850; 86900; 86901; 87086

== ENCOUNTER 2024-01-14 05:51 | Day surgery (SDC) | payer BC ==
[2024-01-12 08:40] VITALS: BMI 33.6
[2024-01-14 06:16] VITALS: RESP 16
[2024-01-14] MEDS: IV FLUID CONTINUATION 1,000 ML IV ONE ×2 (06:27→09:33)
[2024-01-14] MEDS: LACTATED RINGERS 1,000 ML IV SCH ×2 (06:32→11:01)
[2024-01-14] MEDS: DEXAMETHASONE SOD PHOSPHATE 4 MG/ML 1 ML VIAL IV ONE (06:33)
[2024-01-14] MEDS: ONDANSETRON 4 MG/2 ML VIAL IVP ONE (06:33)
[2024-01-14] MEDS: MIDAZOLAM 2 MG/2 ML VIAL IVP ONE (06:58)
[2024-01-14] MEDS ORDERED: HYDROmorphone 0.5 MG/0.5 ML SYRINGE IVP PRN (07:00)
[2024-01-14] MEDS ORDERED: LIDOCAINE 1% INJ 10MG/ML (20 ML MDV) ONE (07:32)
[2024-01-14] MEDS ORDERED: GLYCOPYRROLATE 0.2 MG/ML 2 ML VIAL ONE (07:32)
[2024-01-14] MEDS ORDERED: SUCCINYLCHOLINE CHLORIDE 200 MG/10 ML VIAL IV ONE (07:32)
[2024-01-14] MEDS ORDERED: PROPOFOL 10 MG/ML 20 ML VIAL IV ONE (07:32)
[2024-01-14] MEDS ORDERED: NEOSTIGMINE 1 MG/ML 10 ML VIAL ONE (07:32)
[2024-01-14] MEDS ORDERED: fentaNYL (PF) 50 MCG/ML 2 ML AMP ONE (07:32)
[2024-01-14] MEDS ORDERED: MIDAZOLAM 2 MG/2 ML VIAL ONE (07:32)
[2024-01-14] MEDS ORDERED: MORPHINE SULFATE (PF) 0.3 MG/0.3 ML SYR ONE (07:32)
[2024-01-14] MEDS ORDERED: ROCURONIUM 10 MG/ML (5 ML VIAL) IV ONE (07:32)
--- NOTE | 2024-01-14 07:42 | P.HPOB ---
History of Present Illness H&P Date: 01/14/24 Chief Complaint: Heavy menstrual bleeding, DUB, dysmenorrhea, HR HPV This is a 33-year-old female that presents with complaints of increasing menstrual irregularities. She states her menstrual have been mostly irregular at times every 14 days with a heavy flow. Significant dysmenorrhea is noted. Patient does not have a history of migraines therefore is unable to do medical management. 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 Patient is interested in definitive treatment as she is done with childbearing. Ultrasound was performed revealing a normal uterine size of 8 cm x 5 cm x 3 cm. Ovaries appeared normal with follicles. Heterogeneous appearance of the uterus was suggestive of adenomyosis. [employer] history 4 para 3. Number 01 February 2016, 39-week term delivery 7 pounds 3 ounces June 2017, missed AB requiring suction dilation and curettage July 2018 term vaginal delivery 7 pounds 11 ounces December 2019, term delivery 9 pounds 4 ounces, vaginal delivery. Review of Systems Constitutional: Denies chills, Denies fatigue, Denies fever Ears, nose, mouth and throat: Denies headache Cardiovascular: Denies leg edema Respiratory: Denies dyspnea Gastrointestinal: Denies constipation, Denies diarrhea, Denies nausea, Denies vomiting Genitourinary: Reports dysmenorrhea, Reports menorrhagia, Denies Menstruation: Reports menses variable Past Medical History Past Medical History: GERD/Reflux Additional Past Medical History / Comment(s): miscarriage, Gestational diabetes 05/2018 History of Any Multi-Drug Resistant Organisms: None Reported Past Surgical History: Breast Surgery Additional Past Surgical History / Comment(s): wisdom teeth 2008, D & C, BREAST REDUCTION OCTOBER 2021 Past Anesthesia/Blood Transfusion Reactions: No Reported Reaction Smoking Status: Never smoker - Past Family History Father Family Medical History: Hypertension Medications and Allergies Home Medications Medication Instructions Recorded Confirmed Type Famotidine [Pepcid] 1 tab PO DAILY PRN 05/04/18 01/14/24 History Allergies Allergy/AdvReac Type Severity Reaction Status Date / Time No Known Allergies Allergy Verified 01/14/24 06:16 Exam Osteopathic Statement: *. No significant issues noted on an osteopathic structural exam other than those noted in the History and Physical/Consult. Vital Signs Temp Pulse Resp BP Pulse Ox 01/14/24 07:03 64 16 124/71 97 01/14/24 06:15 97.6 F 77 16 121/74 98 Intake and Output 01/13/24 01/14/24 01/14/24 22:59 06:59 14:59 Intake Total 500 Balance 500 Intake: IV 500 Other: Weight 84.5 kg Targeted physical exam is performed, in general this is a well-nourished well- developed non female in no acute distress, breathing is nonlabored, heart has a regular rate and rhythm, abdomen is soft and nontender, on genitourinary exam external genitalia is noted to be normal for age, vaginal mucosa is noted to be pink and well-rugated, cervix is without lesion, uterus is mobile no adnexal masses are appreciated. Results Result Diagrams: 01/14/24 06:23 Assessment and Plan (1) Heavy menstrual bleeding Current Visit: Yes Status: Acute Code(s): N92.0 - EXCESSIVE AND FREQUENT MENSTRUATION WITH REGULAR CYCLE SNOMED Code(s): 778201160 (2) Dysmenorrhea Current Visit: Yes Status: Acute Code(s): N94.6 - DYSMENORRHEA, UNSPECIFIED SNOMED Code(s): 961850487 (3) Menstrual migraine Current Visit: Yes Status: Acute Code(s): G43.829 - MENSTRUAL MIGRAINE, NOT INTRACTABLE, W/O STATUS MIGRAINOSUS SNOMED Code(s): 66593995 (4) High risk HPV infection Current Visit: Yes Status: Acute Code(s): B97.7 - PAPILLOMAVIRUS THE CAUSE OF DISEASES CLASSIFIED ELSEWHERE SNOMED Code(s): 479174047 (5) Adenomyosis Current Visit: Yes Status: Acute Code(s): N80.03 - ADENOMYOSIS OF THE UTERUS SNOMED Code(s): 564665157 Plan: 33-year-old female that presents for robotic assisted vaginal hysterectomy with bilateral salpingectomy, diagnostic cystoscopy. Patient is counseled on options, and and elects definitive treatment with hysterectomy. Risks are reviewed including but not limited to infection, bleeding, damage to bladder, bowel, ureteric injury. Patient states understanding and wishes to proceed.
--- NOTE | 2024-01-14 08:00 | P.ANPRN ---
Procedure Note - Anesthesia - Epidural/Spinal Spinal Time Out Performed: Yes Date of Procedure: 01/14/24 Procedure Start Time: 06:57 Procedure Stop Time: 07:00 Location of Patient: PreOp Indication: Acute Post-Operative Pain, Requested by Surgeon Sedation Type: Sedate with meaningful contact maintained Preparation: Sterile Dressing Position: Sitting Needle Guage: 25 Blood Aspirated: No Pain Paresthesia on Injection Noted: No Events: Uneventful and Well Tolerated (300 mics plus fentanyl 25 mics given intrathecally)
[2024-01-14] MEDS: BUPIVACAINE (PF) 0.25% 30 ML VIAL SQ ONE (09:25)
[2024-01-14] MEDS ORDERED: Acetaminophen-Codeine 300-30mg TAB PO PRN ×2 (09:43)
[2024-01-14] MEDS ORDERED: SIMETHICONE 80 MG CHEWABLE PO PRN (09:43)
[2024-01-14] MEDS: diphenhydrAMINE 50 MG/ML 1 ML VIAL IVP PRN (10:04)
[2024-01-14] MEDS: ACETAMINOPHEN IV (For NPO) 1,000 MG in EMPTY BAG 1 BAG IVPB ONE (11:00)
--- NOTE | 2024-01-14 12:14 | P.OP ---
Date of Procedure: 01/14/24 Preoperative Diagnosis: Heavy menstrual bleeding, dysmenorrhea, suspected adenomyosis, high risk HPV, dysfunctional uterine bleeding Postoperative Diagnosis: Same Procedure(s) Performed: Robotic assisted vaginal hysterectomy, bilateral salpingectomy, diagnostic cystoscopy Anesthesia: TAMMY Surgeon: Kesha Corrigan Line Fisher #1: Maurice Berkowitz Estimated Blood Loss (ml): 100 IV fluids (ml): 500 Urine output (ml): 200 Pathology: other (Uterus cervix bilateral fallopian tubes) Condition: stable Disposition: PACU Indications for Procedure: Heavy menstrual bleeding, ultrasound revealing a normal-sized uterus with suspicion for adenomyosis normal ovaries bilaterally. Patient's recent Pap smear was positive for high risk HPV 16/18 Operative Findings: Globular uterus normal ovaries bilaterally Description of Procedure: Patient was taken back to the operating suite where general anesthesia was obtained without difficulty by the anesthesia department. She was prepped and draped in the normal sterile fashion in the dorsolithotomy position. A Redding catheter was placed under sterile technique. A weighted speculum placed the posterior vaginal vault the antilipid the cervix was visualized and serially dilated. The Vcare was placed within the endometrial cavity, as a means to manipulate the uterus through the procedure. Attention then turned to the patient's abdomen where approximately 2 fingerbreadths above the umbilicus a small skin incision was made. Through this incision the Veress needle was placed. Once the Veress needle was deemed to be in the appropriate position with a drop of CO2 pressure with the insufflation of CO2 gas CO2 insufflation was allowed to occur. Through this incision a trocar with the laparoscope in place was placed through the skin incision and toward the pneumoperitoneum. The above-noted findings were visualized. The additional port sites were then placed at 10 cm lateral 3 cm inferior to midline port these are operative ports through the da Estelita machine and placed under direct visualization. The left upper quadrant a 12 mm trocar and sleeve was placed under direct visualization. At this time the robot was docked in the usual fashion and the operative arms were placed. In the right operative arm the monopolar scissors is placed, and the left operative arm the bipolar forceps is placed. Attention then turned to the patient's left fallopian tube which was elevated and the mesosalpinx was transected. The utero-ovarian ligament was coagulated distally proximally divided. The round ligament was coagulated distally and proximally divided. The ascending branch of the uterine artery was visualized after the bladder flap was created coagulated and transected. Attention then turned the patient's right fallopian tube which was elevated the mesosalpinx was transected. The utero-ovarian ligament was coagulated distally, proximally and divided. The round ligament was visualized coagulated and transected. The bladder flap from the right was then created using sharp and blunt dissection. At this time a Ray-Nati was placed into the abdomen and dissected the bladder away from the oper ating field. Ray-Nati was then removed from the abdomen. The ascending branch of the uterine artery from the right was visualized coagulated and transected. Multiple additional blood vessels were coagulated and transected. At this time the only remaining attachment was a vaginal attachment therefore colpotomy incision was made with circumferential fashion and the uterus and bilateral fallopian tubes was delivered through the vaginal opening. The pelvis then copiously irrigated. A small amount of bleeding was noted along the vaginal cuff therefore cautery was used to obtain hemostasis. At this time the vaginal cuff was closed with multiple [id number]-md-[id number] sutures of 0 Vicryl. Bleeding was noted on the left-hand side of the vaginal cuff therefore the monopolar by forceps was used to obtain hemostasis. The cuff was closed with approximately 5 [id number] sutures. The pelvis was copiously irrigated hemostasis was appreciated along the vaginal cuff. Both seen in the pelvis pulsating in a normal fashion. Floseal was placed along the vaginal cuff. Both ovaries were visualized and pedicles were noted to be static. All instruments were then removed from the patient's abdomen and the da Estelita was then undocked in the usual fashion. Attention was then turned to the patient's Redding catheter which was removed, clear yellow urine was noted in the Redding catheter tubing. Cystoscope was performed. The cystoscope was placed through the urethra and toward the bladder bladder bubble was appreciated complete survey of the bladder revealed normal bladder mucosa. Both ureteral orifices were noted to be spilling clear yellow urine. The Redding catheter was then replaced. The vaginal vault was cleared of any clots and debris. Attention then turned the patient's abdomen to the skin incisions were closed with 4-0 Vicryl subcuticular fashion. Steri-Strips and sterile dressings were applied. All counts were to be correct x 2 at the end of the procedure. Patient tolerated procedure well and was taken the recovery room awake in stable condition.
[2024-01-14] MEDS: ONDANSETRON 4 MG/2 ML VIAL IVP PRN (14:20)
[2024-01-14] MEDS: IBUPROFEN IV 800 MG in SODIUM CHLORIDE 0.9% 250 ML IV ONE (14:33)
[2024-01-14] MEDS: IBUPROFEN 600 MG TAB PO PRN (14:39)
[2024-01-14] MEDS: SENNOSIDES-DOCUSATE SODIUM 1 EACH TAB PO SCH (20:03)
[2024-01-14] MEDS: BENZOCAINE/MENTHOL LOZENG 1 EACH LOZENGE MUCOUS MEM PRN (22:03)
[2024-01-14] MEDS: ACETAMINOPHEN TAB 325 MG TAB PO PRN (22:04)
[2024-01-15 08:00] VITALS: BP 131/78; PULSE 69; TEMP 98.3
[2024-01-15 08:32] LABS: Basophils % (A) 1 %; Eosinophils # (A) 0.1 k/uL (0-0.7); Eosinophils % (A) 1 %; HCT 36.7 % (34.0-46.0); HGB 12.2 gm/dL (11.4-16.0); Lymphocytes # (A) 2.5 k/uL (1.0-4.8); Lymphocytes % (A) 27 %; MCH 29.1 pg (25.0-35.0); MCHC 33.2 g/dL (31.0-37.0); MCV 87.8 fL (80.0-100.0); Mean Platelet Volume 8.7; Monocytes # (A) 0.5 k/uL (0-1.0); Monocytes % (A) 6 %; Neutrophils % (A) 65 %; Platelet Count 234 k/uL (150-450); RBC 4.17 m/uL (3.80-5.40); RDW 12.9 % (11.5-15.5); WBC 9.3 k/uL (3.8-10.6)
--- NOTE | 2024-01-15 09:16 | P.DS ---
Providers Date of admission: 01/14/2024 Expected date of discharge: 01/15/24 Attending physician: Kesha Corrigan Primary care physician: Hong Greco - Discharge Diagnosis(es) (1) Heavy menstrual bleeding Current Visit: Yes Status: Acute (2) Dysmenorrhea Current Visit: Yes Status: Acute (3) Menstrual migraine Current Visit: Yes Status: Acute (4) High risk HPV infection Current Visit: Yes Status: Acute (5) Adenomyosis Current Visit: Yes Status: Acute Hospital Course: 33-year-old female that presented yesterday for scheduled robotic assisted vaginal hysterectomy with bilateral salpingectomy, diagnostic cystoscopy. Patient had a history of heavy menstrual bleeding, dysfunctional in nature. Patient had an ultrasound completed with globular appearing uterus suspicious for adenomyosis. Patient in addition had a history of abnormal Pap smears with high risk HPV +16/18. Patient did elect definitive treatment. Ovarian conservation had been discussed prior to surgery and she agreed secondary to age. For full details in this patient please see the dictated history and physical. Patient was taken back to the operating room where surgery was performed without difficulty. For full details on the surgery please see the operative report. Patient's postoperative course has been uneventful. This postoperative day #1 she is ambulating and voiding without difficulty. She is tolerating a regular diet without nausea or vomiting. She states her pain is well-controlled. She does note scant vaginal bleeding. She states she is ready for discharge home. Patient Condition at Discharge: Good Plan - Discharge Summary Discharge Rx Participant: Yes New Discharge Prescriptions: No Action Famotidine [Pepcid] 1 tab PO DAILY PRN PRN Reason: Heartburn Discharge Medication List Famotidine [Pepcid] 1 tab PO DAILY PRN 05/04/18 [History] Follow up Appointment(s)/Referral(s): Kesha Corrigan DO [Doctor of Osteopathic Medicine] - 01/28/24 1:45 pm Patient Instructions/Handouts: Laparoscopic Hysterectomy (GEN), Laparoscopic Hysterectomy (DC) Activity/Diet/Wound Care/Special Instructions: No intercourse, tampons or douching. No heavy lifting greater than a gallon of milk. No driving for two weeks. Call with any fever, shakes or chills, with any pain not alleviated by over the counter meds, or with any quesions or concerns. [id number] ibuprofen 600 mg or 3 tablets every 6 hours as needed for pain. Patient is counseled on bleeding precautions, she could have scant to light flow vaginal bleeding occasional passage of clot can be normal. Should she have any concerns prior to her postop appointment she is urged to call the office. Discharge Disposition: HOME SELF-CARE
[2024-01-15] MEDS ORDERED: ACETAMINOPHEN TAB 325 MG TAB PO PRN (09:44)
== END 2024-01-15 11:31 | disposition home or self-care (01) ==
LOC: OR 05:51 → 4FBP 09:25 → OR 01-15 11:31
PROVIDERS: ATTEND Obstetrics & Gynecology Obstetrics
DX: N72 Inflammatory disease of cervix uteri (principal); D25.1 Intramural leiomyoma of uterus; N83.8 Other noninflammatory disorders of ovary, fallopian tube and broad ligament; N87.9 Dysplasia of cervix uteri, unspecified; N88.8 Other specified noninflammatory disorders of cervix uteri; N92.0 Excessive and frequent menstruation with regular cycle; N93.8 Other specified abnormal uterine and vaginal bleeding; N80.03 Adenomyosis of the uterus; G89.18 Other acute postprocedural pain; G43.829 Menstrual migraine, not intractable, without status migrainosus; Z87.59 Personal history of other complications of pregnancy, childbirth and the puerperium; K21.9 Gastro-esophageal reflux disease without esophagitis; Z79.899 Other long term (current) drug therapy
CPT/HCPCS: 58552; 64999; S2900; 81025; 84132; 85025; 88307